=== PATIENT | female | born 1930 | race Caucasian/White ===

== ENCOUNTER 2020-09-29 13:12 | Inpatient (IN) | payer MEDICARE, OTHER ==
[~2020-09-29] VITALS: Ht 162.6 cm; Wt 73.9 kg
[2020-09-29] MEDS ORDERED: ONDANSETRON 4 MG/2 ML VIAL IV ONE (13:30)
[2020-09-29] MEDS ORDERED: HYDROMORPHONE 1 MG/1 ML DISP.SYRIN IV ONE (13:30)
[2020-09-29] MEDS ORDERED: IV NORMAL SALINE 1000 ML BAG IV ONE (13:30)
[2020-09-29] MEDS ORDERED: ONDANSETRON 4 MG/2 ML VIAL ONE (13:43)
[2020-09-29] MEDS ORDERED: HYDROMORPHONE 1 MG/1 ML DISP.SYRIN ONE (13:43)
[2020-09-29] MEDS ORDERED: TRIA1CAP6 PO (13:47)
[2020-09-29] MEDS ORDERED: AMYL1CAP62 PO (13:47)
[2020-09-29] MEDS ORDERED: SITA1TAB6 PO (13:47)
[2020-09-29] MEDS ORDERED: ATOR20TA PO (13:47)
[2020-09-29] MEDS ORDERED: IRBE300T19 PO (13:47)
[2020-09-29] MEDS ORDERED: CELE200C PO (13:47)
[2020-09-29] MEDS ORDERED: DICL100G31 TP (13:47)
[2020-09-29] MEDS ORDERED: DEXL60CA3 PO (13:47)
[2020-09-29] MEDS ORDERED: CYAN-51 PO (13:47)
[2020-09-29] MEDS ORDERED: POTA10CA43 PO (13:47)
[2020-09-29] MEDS ORDERED: FLUO20CA42 PO (13:47)
[2020-09-29] MEDS ORDERED: DICY20TA11 PO (13:47)
[2020-09-29] MEDS ORDERED: CLON0.5T4 PO (13:47)
[2020-09-29] MEDS ORDERED: GLIP5TAB26 PO (13:47)
[2020-09-29] MEDS ORDERED: DAPA10TA PO (13:47)
[2020-09-29] MEDS ORDERED: DULA0.75 SQ (13:47)
[2020-09-29] MEDS ORDERED: DIPH50CA38 PO (13:47)
--- NOTE | 2020-09-29 13:57 | NUR ---
med reconciliation was prepared from pt list of home medications.
[2020-09-29 14:26] LABS: BASOPHILS % (AUTO) 0.2 % (0.0-2.0); EOSINOPHILS % (AUTO) 0.2 % (0.0-7.0); HEMATOCRIT 36.4 % (31.2-41.9); LYMPHOCYTES # (AUTO) 1.7 K/uL (20.0-40.0); LYMPHOCYTES % (AUTO) 29.5 % (20.5-51.5); MEAN CORPUSCULAR HEMOGLOBIN 28.5 uug (24.7-32.8); MEAN CORPUSCULAR HGB CONC 33 g/dL (32.3-35.6); MEAN CORPUSCULAR VOLUME 86.3 fL (75.5-95.3); MONOCYTES # (AUTO) 0.4 K/uL (2.0-10.0); MONOCYTES % (AUTO) 6.6 % (0.0-11.0); NEUTROPHILS # (AUTO) 3.7 K/uL (1.8-8.9); NEUTROPHILS % (AUTO) 63.5 % (38.5-71.5); PLATELET COUNT (AUTO) 221 K/uL (179-408); RED BLOOD CELL COUNT(AUTO) 4.22 MIL/uL (3.63-4.92); WHITE BLOOD COUNT (AUTO) 5.8 K/uL (3.8-11.8)
[2020-09-29] MEDS ORDERED: CEFTRIAXONE 1 G in IV DEXTROSE 5% 50 ML IV ONE (14:30)
[2020-09-29] MEDS ORDERED: AZITHROMYCIN IV 500 MG in IV DEXTROSE 5% 250 ML IV ONE (14:30)
[2020-09-29] MEDS ORDERED: DEXAMETHASONE SOD PHOSPHATE 4 MG INJ IV ONE (14:30)
[2020-09-29] MEDS ORDERED: DEXAMETHASONE SOD PHOSPHATE 10 MG INJ ONE (14:39)
[2020-09-29] MEDS ORDERED: CEFTRIAXONE /D5W 50ML IVPB **ER PYXIS IV ONE (14:40)
[2020-09-29] MEDS ORDERED: AZITHROMYCIN 500MG/ D5W 250ML IVPB **ER PYXIS ONLY IV ONE (14:40)
[2020-09-29 14:45] LABS: CREATININE 0.8 mg/dL (0.6-1.3); POTASSIUM 3.6 mmol/L (3.5-5.1)
[2020-09-29 14:49] LABS: BILIRUBIN,DIRECT 0.1 mg/dL (0.0-0.2); BILIRUBIN,TOTAL 0.3 mg/dL (0.2-1.0); TOTAL PROTEIN, SERUM 6.7 g/dL (6.4-8.2)
--- NOTE | 2020-09-29 15:00 | NUR ---
Received patient from the ER on a gurney. No sign of distress noted. Patient on 2L nasal cannula. Patient's belongings list done and ID band placed on patient. Skin is intact. Safety measures are in place. Will continue to monitor. Addendum: 09/29/20 at 1940 by ARNULFO NADIU RN Time was 1700
--- NOTE | 2020-09-29 15:25 | NUR ---
Patient BP is elevated upon initial vitals. BP is 171/78. Called to clarify with THERAPIST PHYSRICK Reyna, also let nursing supervisor riveting know and made DEEPALI Escamilla aware. Order for hydralazine 5mg PRN Q6h for BP greater than 170 was given. Will continue to monitor. Addendum: 09/29/20 at 1939 by ARNULFO NAIDU RN Time was 1730.
--- NOTE | 2020-09-29 15:27 | NUR ---
COMPUTER SOFTWARE ENGINEER Nicanor [email or web address]
[2020-09-29 15:50] LABS: *BILIRUBIN,URIN NEGATIVE (NEGATIVE); *CLARITY,URINE CLEAR (CLEAR); *COLOR,URINE LIGHT YELLOW (YELLOW); *KETONES,URINE NEGATIVE (NEGATIVE); *UROBILINOGEN,URINE 0.2 E.U./dl (NORMAL); LEUKOCYTE ESTERASE ,URINE NEGATIVE (NEGATIVE); NITRITE, URINE NEGATIVE (NEGATIVE); UGLUCOSE NEGATIVE (NEGATIVE)
[2020-09-29 15:52] LABS: *BLOOD, URINE TRACE LYSED (NEGATIVE)
[2020-09-29] MEDS ORDERED: HYDROCODONE/APAP 5-325MG TABLET PO PRN (16:00)
[2020-09-29] MEDS: CEFTRIAXONE 1 G in IV DEXTROSE 5% 50 ML IV SCH (16:00)
[2020-09-29] MEDS ORDERED: ONDANSETRON 4 MG/2 ML VIAL IV PRN (16:00)
[2020-09-29] MEDS ORDERED: ZOLPIDEM 5 MG TABLET PO PRN (16:00)
[2020-09-29] MEDS ORDERED: ENOXAPARIN SODIUM 30 MG/0.3 ML DISP.SYRIN SUBCUT SCH (16:30)
[2020-09-29] MEDS ORDERED: DICYCLOMINE HCL 20 MG TABLET PO PRN (16:30)
--- NOTE | 2020-09-29 16:36 | NUR ---
Patient is resting comfortably on gurney in high modi's position, respiration:easy, RUQ abdominal pains is 3-5/10 at this time. Comofrt & safety measures maintained
[2020-09-29] MEDS ORDERED: ENOXAPARIN SODIUM 30 MG/0.3 ML DISP.SYRIN ONE (16:38)
[2020-09-29 17:00] LABS: FERRITIN 176 ng/mL (8-252); LACTATE DEHYDROGENASE 250 U/L (81-234)
[2020-09-29] MEDS ORDERED: DEXTROSE 50% 50 ML DISP.SYRIN IV PRN (17:00)
[2020-09-29 17:30] VITALS: BP 171/78
[2020-09-29] MEDS ORDERED: IV NS 1000 ML 1,000 ML IV ONE (17:30)
[2020-09-29] MEDS ORDERED: MORPHINE SULFATE 2 MG/1 ML DISP.SYRIN IM PRN (17:30)
[2020-09-29] MEDS: LIPASE/PROTEASE/AMYLASE 4200 UNITS CAPSULE.DR PO SCH (18:39)
[2020-09-29] MEDS: hydrALAZINE HCL 10 MG TABLET PO PRN (18:43)
--- NOTE | 2020-09-29 19:40 | NUR ---
Patient is resting in bed. All medications given as ordered. Patient is saturating well. Safety precautions are in place. Will endorse to the oncoming nurse.
[2020-09-29 20:00] VITALS: BP 150/79
[2020-09-29 20:41] LABS: BACTERIA,URINE NONE SEEN /HPF (NONE SEEN); RBC,URINE 0-3 /HPF (0-3); SQUAMOUS EPITHELIAL CELL,UR FEW /HPF (NONE SEEN); WBC,URINE 0-3 /HPF (0-3)
[2020-09-29 20:42] LABS: MUCUS,URINE FEW /LPF (0-FEW)
[2020-09-29] MEDS: ATORVASTATIN 20 MG TABLET PO SCH (20:57)
[2020-09-29] MEDS: BLOOD SUGAR DIAGNOSTIC 1 EACH STRIP VI SCH (20:57)
[2020-09-29] MEDS: INSULIN GLARGINE,HUM 300 UNITS/3 ML CARTRIDGE SQ SCH (20:58)
[2020-09-29] MEDS ORDERED: BLOOD SUGAR DIAGNOSTIC 1 EACH STRIP VI SCH (21:00)
--- NOTE | 2020-09-29 21:00 | NUR ---
Received patient in bed resting. AAOx4. No s/s of acute distress noted at this time. Pt on 2L NC with O2 @ 97%. NSR on tele. Left FA IV patent and intact. Bed alarm on, safety measures and isolation precautions in place.
[2020-09-29] MEDS: INSULIN REGULAR, HUMAN 300 UNIT/3 ML VIAL SQ PRN (21:01)
[2020-09-30] VITALS: BP 157/80
[2020-09-30] MEDS: CLONAZEPAM 0.5 MG TABLET PO PRN ×2 (04:03→22:14)
[2020-09-30 04:11] VITALS: BP 159/77
[2020-09-30] MEDS: PANTOPRAZOLE SODIUM 40 MG TABLET.DR PO SCH (06:52)
[2020-09-30 06:57] LABS: BASOPHILS % (AUTO) 0.2 % (0.0-2.0); EOSINOPHILS % (AUTO) 0.1 % (0.0-7.0); HEMATOCRIT 35.8 % (31.2-41.9); HEMOGLOBIN 12.1 g/dL (10.9-14.3); LYMPHOCYTES # (AUTO) 1.2 K/uL (20.0-40.0); LYMPHOCYTES % (AUTO) 34.1 % (20.5-51.5); MEAN CORPUSCULAR HGB CONC 34 g/dL (32.3-35.6); MONOCYTES # (AUTO) 0.3 K/uL (2.0-10.0); MONOCYTES % (AUTO) 7.9 % (0.0-11.0); NEUTROPHILS # (AUTO) 2.1 K/uL (1.8-8.9); NEUTROPHILS % (AUTO) 57.7 % (38.5-71.5); PLATELET COUNT (AUTO) 231 K/uL (179-408); RED BLOOD CELL COUNT(AUTO) 4.17 MIL/uL (3.63-4.92); WHITE BLOOD COUNT (AUTO) 3.6 K/uL (3.8-11.8)
--- NOTE | 2020-09-30 07:00 | NUR ---
No significant changes over night. Pt stable. No s/s of acute distress noted at this time. All patient needs were met and attended to. Safety and isolation precautions in place.
[2020-09-30] MEDS: BLOOD SUGAR DIAGNOSTIC 1 EACH STRIP VI SCH ×4 (07:03→20:54)
[2020-09-30 07:12] LABS: MAGNESIUM 1.3 mg/dL (1.8-2.4); PHOSPHOROUS 2.3 mg/dL (2.5-4.9); POTASSIUM 3.7 mmol/L (3.5-5.1)
[2020-09-30] MEDS ORDERED: INSULIN LISPRO 300 UNIT/3 ML VIAL SQ SCH (07:30)
[2020-09-30] MEDS: DEXAMETHASONE SOD PHOSPHATE 10 MG INJ IV SCH (08:38)
[2020-09-30] MEDS: CYANOCOBALAMIN 1,000 MCG TABLET PO SCH (08:38)
[2020-09-30] MEDS: INSULIN REGULAR, HUMAN 300 UNIT/3 ML VIAL SQ PRN ×4 (08:45→20:55)
[2020-09-30] MEDS: FLUOXETINE HCL 20 MG CAPSULE PO SCH (08:50)
[2020-09-30] MEDS: LIPASE/PROTEASE/AMYLASE 4200 UNITS CAPSULE.DR PO SCH ×3 (08:51→17:41)
[2020-09-30] MEDS: LOSARTAN POTASSIUM 50 MG TABLET PO SCH (08:52)
[2020-09-30] MEDS: ENOXAPARIN SODIUM 40 MG/0.4 ML DISP.SYRIN SQ SCH (08:53)
[2020-09-30] MEDS: MAGNESIUM SULFATE/D5W 100 ML IV SCH ×4 (09:57→13:42)
[2020-09-30 11:54] VITALS: BP 167/77
[2020-09-30] MEDS: hydrALAZINE HCL 10 MG TABLET PO PRN (12:14)
[2020-09-30] MEDS: CEFTRIAXONE 1 G in IV DEXTROSE 5% 50 ML IV SCH (14:42)
[2020-09-30] MEDS: AZITHROMYCIN IV 500 MG in IV DEXTROSE 5% 250 ML IV SCH (15:31)
[2020-09-30] MEDS ORDERED: NEUTRA PHOS PACKET PO ONE (15:45)
[2020-09-30 16:03] VITALS: BP 150/69
--- NOTE | 2020-09-30 16:38 | NUR ---
patient is alert, oriented x4, verbally responsive, able to tolerate ambulation to the bathroom, and bacl to bed, tolerated meals well, no nausea, no vomiting, no chills, no fever noted during shift.
--- NOTE | 2020-09-30 17:22 | NUR ---
PCR covid swabbed yesterday per lab, result pending
[2020-09-30 20:10] VITALS: BP 149/72
--- NOTE | 2020-09-30 20:30 | NUR ---
RECEIVED PATIENT AWAKE IN BED. A/O X3, BUT VERY LITTLE SHELL TRIBE. C/O DISCOMFORT IN LEFT KNEE. VSS. ON O2 2L NC, DENIES ANY SOB. NO RESP. DISTRESS NOTED. ON TELE SR. BED ALARM ON. CALL LIGHT IN REACH. ALL NEEDS ATTENDED. WILL CONTINUE TO MONITOR AND ASSESS.
[2020-09-30] MEDS: INSULIN GLARGINE,HUM 300 UNITS/3 ML CARTRIDGE SQ SCH (20:55)
[2020-09-30] MEDS: ACETAMINOPHEN 325 MG TABLET PO PRN (20:59)
[2020-09-30] MEDS: ATORVASTATIN 20 MG TABLET PO SCH (21:00)
--- NOTE | 2020-09-30 22:15 | NUR ---
PATIENT C/O OF NOT BEING ABLE TO SLEEP. REQUESTING SLEEPING PILL. PATIENT GIVEN KLONOPIN 0.5MG PO PRN FOR INSOMNIA ORDERED PER MD. BED ALARM ON. CALL LIGHT IN REACH. ALL NEEDS ATTENDED.
--- NOTE | 2020-09-30 23:30 | NUR ---
PATIENT ASLEEP IN BED. RESTING WELL. KLONOPIN EFFECTIVE. WILL CONTINUE TO MONITOR. BED ALARM ON.
[2020-10-01] VITALS (9 sets, daily range): BP systolic 136–164; BP diastolic 58–93
[2020-10-01 06:07] LABS: BASOPHILS % (AUTO) 0.4 % (0.0-2.0); EOSINOPHILS % (AUTO) 0.2 % (0.0-7.0); HEMATOCRIT 35.6 % (31.2-41.9); HEMOGLOBIN 12.2 g/dL (10.9-14.3); LYMPHOCYTES % (AUTO) 32.7 % (20.5-51.5); MEAN CORPUSCULAR HEMOGLOBIN 29.3 uug (24.7-32.8); MEAN CORPUSCULAR HGB CONC 34 g/dL (32.3-35.6); MEAN CORPUSCULAR VOLUME 85.8 fL (75.5-95.3); MONOCYTES # (AUTO) 0.5 K/uL (2.0-10.0); MONOCYTES % (AUTO) 7.8 % (0.0-11.0); NEUTROPHILS # (AUTO) 3.6 K/uL (1.8-8.9); NEUTROPHILS % (AUTO) 58.9 % (38.5-71.5); PLATELET COUNT (AUTO) 256 K/uL (179-408); RED BLOOD CELL COUNT(AUTO) 4.15 MIL/uL (3.63-4.92); WHITE BLOOD COUNT (AUTO) 6.1 K/uL (3.8-11.8)
[2020-10-01] MEDS: PANTOPRAZOLE SODIUM 40 MG TABLET.DR PO SCH (06:11)
[2020-10-01] MEDS: BLOOD SUGAR DIAGNOSTIC 1 EACH STRIP VI SCH ×4 (06:12→20:49)
[2020-10-01 06:20] LABS: PHOSPHOROUS 2.3 mg/dL (2.5-4.9); POTASSIUM 3.3 mmol/L (3.5-5.1)
--- NOTE | 2020-10-01 06:30 | NUR ---
PATIENT ASLEEP IN BED. EASILY AROUSABLE. SLEPT WELL AFTER PRN KLONOPIN WAS GIVEN. ON TELE SR. CALL LIGHT IN REACH. ALL NEEDS ATTENDED. WILL CONTINUE TO MONITOR AND ASSESS.
[2020-10-01] MEDS: DEXAMETHASONE SOD PHOSPHATE 10 MG INJ IV SCH (08:03)
[2020-10-01] MEDS: CYANOCOBALAMIN 1,000 MCG TABLET PO SCH (08:03)
[2020-10-01] MEDS: LIPASE/PROTEASE/AMYLASE 4200 UNITS CAPSULE.DR PO SCH ×3 (08:03→17:02)
[2020-10-01] MEDS: FLUOXETINE HCL 20 MG CAPSULE PO SCH (08:03)
[2020-10-01] MEDS: LOSARTAN POTASSIUM 50 MG TABLET PO SCH (08:04)
[2020-10-01] MEDS: ENOXAPARIN SODIUM 40 MG/0.4 ML DISP.SYRIN SQ SCH (08:11)
[2020-10-01] MEDS ORDERED: POTASSIUM CHLORIDE 20 MEQ POWDER PACKET PO ONE (08:15)
[2020-10-01] MEDS: AMLODIPINE 5 MG TABLET PO SCH (09:04)
[2020-10-01] MEDS: INSULIN REGULAR, HUMAN 300 UNIT/3 ML VIAL SQ PRN ×3 (11:39→20:53)
[2020-10-01] MEDS: CEFTRIAXONE 1 G in IV DEXTROSE 5% 50 ML IV SCH (13:39)
--- NOTE | 2020-10-01 14:11 | NUR ---
spoke to family son and ok to give remedesivir
[2020-10-01] MEDS: AZITHROMYCIN IV 500 MG in IV DEXTROSE 5% 250 ML IV SCH (14:19)
[2020-10-01] MEDS ORDERED: NEUTRA PHOS PACKET PO ONE (15:45)
[2020-10-01] MEDS ORDERED: REMDESIVIR (CHARGED) 200 MG in IV NORMAL SALINE 210 ML IV ONE (16:00)
--- NOTE | 2020-10-01 17:54 | NUR ---
first dose of remdesvir administered, patient tolerated well, tolerated meals well, no acute distress noted
--- NOTE | 2020-10-01 17:56 | NUR ---
patient is alert, oriented x4, [place] citizen speaking, understands some pakistani, tolerated ambulation to the bahtroom and back to bed without any distress, eats herself, continue on IV hydration as ordered.
--- NOTE | 2020-10-01 19:55 | NUR ---
Received patient in bed.Awake alert x4 with O2 at 2 LPM saturating at 97% .No acute distress noted.Denies pain at this time.IvF Ns running at 80 cc/ml on right FA with 22g.Due meds given.Continue safety measures.Call light with in reach.Will continue to monitor.
[2020-10-01] MEDS: ATORVASTATIN 20 MG TABLET PO SCH (20:47)
[2020-10-01] MEDS: INSULIN GLARGINE,HUM 300 UNITS/3 ML CARTRIDGE SQ SCH (20:49)
[2020-10-01] MEDS: IV NS 1000 ML 1,000 ML IV PRN (22:05)
[2020-10-01] MEDS: CLONAZEPAM 0.5 MG TABLET PO PRN (22:13)
[2020-10-02] VITALS (7 sets, daily range): BP systolic 138–173; BP diastolic 69–84
[2020-10-02] MEDS: hydrALAZINE HCL 10 MG TABLET PO PRN ×2 (01:35→22:52)
[2020-10-02] MEDS: ACETAMINOPHEN 325 MG TABLET PO PRN (06:12)
[2020-10-02] MEDS: PANTOPRAZOLE SODIUM 40 MG TABLET.DR PO SCH (06:19)
[2020-10-02] MEDS: BLOOD SUGAR DIAGNOSTIC 1 EACH STRIP VI SCH ×4 (06:19→20:33)
[2020-10-02 06:44] LABS: BASOPHILS % (AUTO) 0.1 % (0.0-2.0); EOSINOPHILS % (AUTO) 0.4 % (0.0-7.0); HEMATOCRIT 34.8 % (31.2-41.9); LYMPHOCYTES # (AUTO) 1.9 K/uL (20.0-40.0); LYMPHOCYTES % (AUTO) 26.8 % (20.5-51.5); MEAN CORPUSCULAR HEMOGLOBIN 29.5 uug (24.7-32.8); MEAN CORPUSCULAR HGB CONC 34 g/dL (32.3-35.6); MEAN CORPUSCULAR VOLUME 85.8 fL (75.5-95.3); MONOCYTES # (AUTO) 0.5 K/uL (2.0-10.0); NEUTROPHILS # (AUTO) 4.6 K/uL (1.8-8.9); NEUTROPHILS % (AUTO) 65.7 % (38.5-71.5); PLATELET COUNT (AUTO) 308 K/uL (179-408); RED BLOOD CELL COUNT(AUTO) 4.06 MIL/uL (3.63-4.92)
--- NOTE | 2020-10-02 06:47 | NUR ---
Patient slept well through out the shift.Bp 173/72 ,Hydralazine PRN was given at 0135.Denies pain or SOB.Recheck Bp went down to 154/69.
[2020-10-02 07:08] LABS: BILIRUBIN,DIRECT 0.1 mg/dL (0.0-0.2); BILIRUBIN,TOTAL 0.2 mg/dL (0.2-1.0); CREATININE 0.9 mg/dL (0.6-1.3); MAGNESIUM 1.6 mg/dL (1.8-2.4); PHOSPHOROUS 2.5 mg/dL (2.5-4.9); POTASSIUM 3.5 mmol/L (3.5-5.1); TOTAL PROTEIN, SERUM 6.5 g/dL (6.4-8.2)
[2020-10-02] MEDS: CYANOCOBALAMIN 1,000 MCG TABLET PO SCH (08:04)
[2020-10-02] MEDS: FLUOXETINE HCL 20 MG CAPSULE PO SCH (08:04)
[2020-10-02] MEDS: DEXAMETHASONE SOD PHOSPHATE 10 MG INJ IV SCH (08:04)
[2020-10-02] MEDS: AMLODIPINE 5 MG TABLET PO SCH (08:05)
[2020-10-02] MEDS: LOSARTAN POTASSIUM 50 MG TABLET PO SCH (08:05)
[2020-10-02] MEDS: LIPASE/PROTEASE/AMYLASE 4200 UNITS CAPSULE.DR PO SCH ×3 (08:06→17:16)
[2020-10-02] MEDS: ENOXAPARIN SODIUM 40 MG/0.4 ML DISP.SYRIN SQ SCH (08:07)
[2020-10-02] MEDS ORDERED: MAGNESIUM SULFATE 1 GM in IV DEXTROSE 5% 100 ML IV ONE (08:45)
[2020-10-02] MEDS ORDERED: MAGNESIUM SULFATE/D5W 100 ML IV SCH (09:00)
--- NOTE | 2020-10-02 09:05 | NUR ---
SEEN BY PROJECT ENGINEERING MANAGER AND NOTED ABNORMAL LABS. WILL REPLACE MAGNESIUM. PLS SEE NOTES
[2020-10-02] MEDS: IV NS 1000 ML 1,000 ML IV PRN (10:58)
[2020-10-02] MEDS: INSULIN REGULAR, HUMAN 300 UNIT/3 ML VIAL SQ PRN ×3 (11:18→20:39)
[2020-10-02] MEDS: CEFTRIAXONE 1 G in IV DEXTROSE 5% 50 ML IV SCH (13:43)
[2020-10-02] MEDS ORDERED: AZITHROMYCIN 250 MG TABLET PO SCH (15:00)
[2020-10-02] MEDS: REMDESIVIR (CHARGED) 100 MG in IV NORMAL SALINE 100 ML IV SCH (16:05)
[2020-10-02] MEDS: INSULIN GLARGINE,HUM 300 UNITS/3 ML CARTRIDGE SQ SCH (20:40)
[2020-10-02] MEDS: ATORVASTATIN 20 MG TABLET PO SCH (20:42)
[2020-10-02] MEDS: CLONAZEPAM 0.5 MG TABLET PO PRN (22:39)
[2020-10-03 00:22] VITALS: BP 159/70
[2020-10-03] MEDS: MAGNESIUM HYDROXIDE 30 ML LIQUID UDC PO PRN ×2 (05:04→21:21)
[2020-10-03] MEDS: PANTOPRAZOLE SODIUM 40 MG TABLET.DR PO SCH (06:06)
[2020-10-03] MEDS: BLOOD SUGAR DIAGNOSTIC 1 EACH STRIP VI SCH ×4 (06:06→20:21)
[2020-10-03 06:17] VITALS: BP 160/74
[2020-10-03 06:27] LABS: BASOPHILS # (AUTO) 0.1 K/uL (0.0-8.0); BASOPHILS % (AUTO) 0.9 % (0.0-2.0); EOSINOPHILS % (AUTO) 0.2 % (0.0-7.0); HEMATOCRIT 36.3 % (31.2-41.9); HEMOGLOBIN 12.2 g/dL (10.9-14.3); LYMPHOCYTES # (AUTO) 2.1 K/uL (20.0-40.0); LYMPHOCYTES % (AUTO) 27.8 % (20.5-51.5); MEAN CORPUSCULAR HEMOGLOBIN 29.3 uug (24.7-32.8); MEAN CORPUSCULAR HGB CONC 34 g/dL (32.3-35.6); MEAN CORPUSCULAR VOLUME 86.7 fL (75.5-95.3); MONOCYTES # (AUTO) 0.6 K/uL (2.0-10.0); MONOCYTES % (AUTO) 7.5 % (0.0-11.0); NEUTROPHILS # (AUTO) 4.8 K/uL (1.8-8.9); NEUTROPHILS % (AUTO) 63.6 % (38.5-71.5); PLATELET COUNT (AUTO) 314 K/uL (179-408); RED BLOOD CELL COUNT(AUTO) 4.19 MIL/uL (3.63-4.92); WHITE BLOOD COUNT (AUTO) 7.6 K/uL (3.8-11.8)
[2020-10-03 06:47] LABS: ALANINE AMINOTRANSFERASE 24 U/L (14-59); ALKALINE PHOSPHATASE 77 U/L (50-136); ASPARTATE AMINOTRANSFERASE 23 U/L (15-37); BILIRUBIN,TOTAL 0.4 mg/dL (0.2-1.0); CARBON DIOXIDE 28 mmol/L (21-32); CHLORIDE 99 mmol/L (98-107); CREATININE 0.8 mg/dL (0.6-1.3); GLUCOSE 104 mg/dL (74-106); POTASSIUM 3.9 mmol/L (3.5-5.1); TOTAL PROTEIN, SERUM 6.6 g/dL (6.4-8.2); UREA NITROGEN, BLOOD 21 mg/dL (7-18)
[2020-10-03 06:48] LABS: BILIRUBIN,DIRECT 0.1 mg/dL (0.0-0.2)
--- NOTE | 2020-10-03 07:30 | NUR ---
Received patient sitting on the side of the bed awake, alert and oriented times 4. Patient is on 2L NC. No sign of distress noted. Patient denies any pain. Safety precautions are in place. Will continue to monitor
[2020-10-03] MEDS: CYANOCOBALAMIN 1,000 MCG TABLET PO SCH (08:14)
[2020-10-03] MEDS: DEXAMETHASONE SOD PHOSPHATE 10 MG INJ IV SCH (08:14)
[2020-10-03] MEDS: FLUOXETINE HCL 20 MG CAPSULE PO SCH (08:15)
[2020-10-03] MEDS: LIPASE/PROTEASE/AMYLASE 4200 UNITS CAPSULE.DR PO SCH ×3 (08:19→18:03)
[2020-10-03] MEDS: LOSARTAN POTASSIUM 50 MG TABLET PO SCH (08:49)
[2020-10-03] MEDS: AMLODIPINE 5 MG TABLET PO SCH (08:50)
[2020-10-03] MEDS: ENOXAPARIN SODIUM 40 MG/0.4 ML DISP.SYRIN SQ SCH (08:51)
[2020-10-03] MEDS: MAGNESIUM CITRATE 296 ML BOTTLE PO ONE ×2 (11:00→11:08)
--- NOTE | 2020-10-03 11:10 | NUR ---
Patient refused Magnesium citrate ordered. She stated " she does not want it because she will be in the bathroom all day". Will continue to monitor.
[2020-10-03 11:47] VITALS: BP 155/79
[2020-10-03] MEDS: IV NS 1000 ML 1,000 ML IV PRN (12:03)
[2020-10-03] MEDS: INSULIN REGULAR, HUMAN 300 UNIT/3 ML VIAL SQ PRN ×3 (12:08→20:49)
[2020-10-03] MEDS: CEFTRIAXONE 1 G in IV DEXTROSE 5% 50 ML IV SCH (14:31)
[2020-10-03] MEDS: REMDESIVIR (CHARGED) 100 MG in IV NORMAL SALINE 100 ML IV SCH (16:14)
--- NOTE | 2020-10-03 16:15 | NUR ---
Started infusion of Remdesivir. Patient vital signs taken and are within normal limits. Will continue to monitor.
[2020-10-03 16:36] VITALS: BP 150/73
--- NOTE | 2020-10-03 17:20 | NUR ---
Patient and family asked to be taken off oxygen to see how she will saturate. Patient is currently saturating at 93-94% on room air. Will continue to monitor.
--- NOTE | 2020-10-03 19:04 | NUR ---
Patient is resting in bed. Patient is now on room air saturating at 94%. No sign of distress noted. All medications given as ordered. Safety precautions are in place. Will endorse to the oncoming nurse.
[2020-10-03] MEDS: DOCUSATE SODIUM 100 MG CAPSULE PO SCH (20:14)
[2020-10-03] MEDS: ATORVASTATIN 20 MG TABLET PO SCH (20:14)
[2020-10-03 20:21] VITALS: BP 141/65
[2020-10-03] MEDS: INSULIN GLARGINE,HUM 300 UNITS/3 ML CARTRIDGE SQ SCH (20:48)
[2020-10-04 00:18] VITALS: BP_SYST 141; BP_SYST 169; BP_SYST 172; BP_DIAS 65; BP_DIAS 77; BP_DIAS 80
[2020-10-04 04:18] VITALS: BP_SYST 101; BP_SYST 169; BP_DIAS 65; BP_DIAS 81
[2020-10-04] MEDS: IV NS 1000 ML 1,000 ML IV PRN (04:27)
--- NOTE | 2020-10-04 05:47 | NUR ---
PAtient ALOx4 with O2 at 4 LPM via NC saturating 94 %.Denies pain at this time.Ambulates to bathroom ,Iv on right AC patent and intact.Compliant with medication.No a/r noted.All needs anticipated and met accordingly.
[2020-10-04] MEDS: BLOOD SUGAR DIAGNOSTIC 1 EACH STRIP VI SCH ×3 (06:00→16:24)
[2020-10-04] MEDS: PANTOPRAZOLE SODIUM 40 MG TABLET.DR PO SCH (06:00)
[2020-10-04 06:44] LABS: BASOPHILS % (AUTO) 0.1 % (0.0-2.0); EOSINOPHILS % (AUTO) 0.5 % (0.0-7.0); HEMATOCRIT 36.8 % (31.2-41.9); HEMOGLOBIN 12.7 g/dL (10.9-14.3); LYMPHOCYTES # (AUTO) 2.2 K/uL (20.0-40.0); LYMPHOCYTES % (AUTO) 29.5 % (20.5-51.5); MEAN CORPUSCULAR HEMOGLOBIN 29.6 uug (24.7-32.8); MEAN CORPUSCULAR HGB CONC 35 g/dL (32.3-35.6); MEAN CORPUSCULAR VOLUME 85.6 fL (75.5-95.3); MONOCYTES # (AUTO) 0.6 K/uL (2.0-10.0); MONOCYTES % (AUTO) 8.2 % (0.0-11.0); NEUTROPHILS # (AUTO) 4.6 K/uL (1.8-8.9); NEUTROPHILS % (AUTO) 61.7 % (38.5-71.5); PLATELET COUNT (AUTO) 374 K/uL (179-408); WHITE BLOOD COUNT (AUTO) 7.4 K/uL (3.8-11.8)
[2020-10-04 06:58] LABS: BILIRUBIN,DIRECT 0.1 mg/dL (0.0-0.2); BILIRUBIN,TOTAL 0.3 mg/dL (0.2-1.0); CREATININE 0.9 mg/dL (0.6-1.3); MAGNESIUM 1.7 mg/dL (1.8-2.4); PHOSPHOROUS 2.1 mg/dL (2.5-4.9); POTASSIUM 3.5 mmol/L (3.5-5.1); TOTAL PROTEIN, SERUM 6.7 g/dL (6.4-8.2)
--- NOTE | 2020-10-04 07:58 | NUR ---
Patient in bed sleeping but arousable to stimuli. No facial grimacing noted. No resp distress on RA spo2 93%. Isolation precautions observed. Bed kept low. Call light within reach. Will continue to monitor.
[2020-10-04] MEDS: hydrALAZINE HCL 25 MG TABLET PO SCH ×2 (08:30→13:05)
[2020-10-04] MEDS ORDERED: AMLODIPINE 5 MG TABLET PO SCH (09:00)
[2020-10-04] MEDS ORDERED: HYDROCHLOROTHIAZIDE 25 MG TABLET PO SCH (09:00)
[2020-10-04] MEDS: LIPASE/PROTEASE/AMYLASE 4200 UNITS CAPSULE.DR PO SCH ×3 (09:13→17:11)
[2020-10-04] MEDS: CYANOCOBALAMIN 1,000 MCG TABLET PO SCH (09:16)
[2020-10-04] MEDS: FLUOXETINE HCL 20 MG CAPSULE PO SCH (09:16)
[2020-10-04] MEDS: DEXAMETHASONE SOD PHOSPHATE 10 MG INJ IV SCH (09:16)
[2020-10-04] MEDS: DOCUSATE SODIUM 100 MG CAPSULE PO SCH (09:16)
[2020-10-04] MEDS: LOSARTAN POTASSIUM 50 MG TABLET PO SCH (09:16)
[2020-10-04] MEDS: ENOXAPARIN SODIUM 40 MG/0.4 ML DISP.SYRIN SQ SCH (09:43)
[2020-10-04] MEDS: ACETAMINOPHEN 325 MG TABLET PO PRN (10:43)
[2020-10-04] MEDS: MAGNESIUM SULFATE/D5W 100 ML IV SCH ×2 (10:57→12:21)
[2020-10-04 12:00] VITALS: BP 130/52
[2020-10-04] MEDS: INSULIN REGULAR, HUMAN 300 UNIT/3 ML VIAL SQ PRN ×2 (12:03→16:28)
[2020-10-04] MEDS: CEFTRIAXONE 1 G in IV DEXTROSE 5% 50 ML IV SCH (13:05)
[2020-10-04] MEDS ORDERED: ACET325T53 PO (13:16)
[2020-10-04] MEDS ORDERED: ENOX40DI SQ (13:16)
[2020-10-04] MEDS ORDERED: AMLO-212 PO (13:16)
--- NOTE | 2020-10-04 15:00 | NUR ---
Received order for patient's discharge to [facility] today. Received call from Melissa DUARTE that patient will be picked up at 630pm. Called Anuj and stated he was made aware already. Patient made aware and verbalized understanding. Will continue to monitor.
[2020-10-04] MEDS ORDERED: NEUTRA PHOS PACKET PO ONE (15:30)
[2020-10-04 16:00] VITALS: BP 148/63
[2020-10-04] MEDS: REMDESIVIR (CHARGED) 100 MG in IV NORMAL SALINE 100 ML IV SCH (16:23)
--- NOTE | 2020-10-04 17:34 | NUR ---
Called [facility] to give report and was told RN retail supervisor had an emergency and will call me back to get report.
--- NOTE | 2020-10-04 19:05 | NUR ---
Patient discharged to [facility] in stable condition. Alert, oriented x 4. Denies pain or discomfort. VS WNL. Skin remains intact. No respiratory distress. On Room Air spo2 95%. No nausea or vomiting noted. Denies abdominal pain. Patient's belongings inventoried and confirmed by the patient. Teachings done, and she verbalized understanding. IV removed and tolerated. Report was given to Trung RN. Patient was picked up by 2 tumbler dyeing machine operator from [facility].
== END 2020-10-04 19:00 | DRG 177 ==
LOC: ER 13:12 → TELE3 15:38 → TELE 16:04 → TELE3 10-02 18:27
PROVIDERS: ADMIT Nurse Practitioner Family; ATTEND Nurse Practitioner Family
PROC: XW033E5 Introduction of Remdesivir Anti-infective into Peripheral Vein, Percutaneous Approach, New Technology Group 5 (ICD-10-PCS; principal; 2020-10-01)
DX: U07.1 COVID-19 (principal); J96.01 Acute respiratory failure with hypoxia; J12.82 Pneumonia due to coronavirus disease 2019; J15.9 Unspecified bacterial pneumonia; E87.1 Hypo-osmolality and hyponatremia; K86.2 Cyst of pancreas; N39.0 Urinary tract infection, site not specified; E66.9 Obesity, unspecified; K21.9 Gastro-esophageal reflux disease without esophagitis; I12.9 Hypertensive chronic kidney disease with stage 1 through stage 4 chronic kidney disease, or unspecified chronic kidney disease; N18.30 Chronic kidney disease, stage 3 unspecified; E78.5 Hyperlipidemia, unspecified; M17.0 Bilateral primary osteoarthritis of knee; E11.22 Type 2 diabetes mellitus with diabetic chronic kidney disease; Z68.28 Body mass index [BMI] 28.0-28.9, adult; Z79.84 Long term (current) use of oral hypoglycemic drugs; R10.9 Unspecified abdominal pain; R11.2 Nausea with vomiting, unspecified; E83.42 Hypomagnesemia; R19.7 Diarrhea, unspecified; B95.4 Other streptococcus as the cause of diseases classified elsewhere; K59.00 Constipation, unspecified; Z71.3 Dietary counseling and surveillance
CPT/HCPCS: 36415; 70030-TC; 71045; 76705; 83605; 83615; 83690; 83735; 84100; 85025; 85610; 85730; 86140; 87040; 87086; 93005; A4663; G0378; J0456; J0696; J1100; J1170; J1650; J1815; J2405; J3475; J3490; J7030; J7050; J7060; Q0144; U0003